=== PATIENT | male | born 1960 | race Two or more races ===

== ENCOUNTER 2017-11-01 22:20 | Emergency (ER) | payer OTHER ==
[~2017-11-01] VITALS: Ht 167.6 cm; Wt 79.8 kg
[2017-11-01] MEDS ORDERED: NKM (22:39)
[2017-11-01 22:52] VITALS: BP 136/81
[2017-11-01] MEDS ORDERED: HYDROCHLOROTHIA25 MG ORAL (23:32)
--- NOTE | 2017-11-01 23:32 | Emergency Room Report ---
History of Present Illness General Chief Complaint: Generalized Weakness Source: Patient Present Illness HPI Is a 57-year-old male with no past mental history. He presents with chief complaint of high blood pressure. He was seen by an ENT DrChris for preop for surgery on his left ear. He was therefore blood work and evaluation. He was nervous. His plus pressure was elevated. Systolic in the 200 and diastolic 100. They told to go to the hospital. He did not go anywhere until now. Here blood pressure was running systolic in the 130s to 160. Patient said he felt better. No nausea no vomiting. No fever or chills. Denies any other complaint. Allergies: Uncoded Allergies: SOYA MILK (Allergy, Unknown, 11/01/17) Patient History Past Medical History: see triage record, old chart reviewed Past Surgical History: other Pertinent Family History: none Social History: Denies: smoking Immunizations: other Reviewed Nursing Documentation: PMH: Agreed; PSxH: Agreed Nursing Documentation-PMH Past Medical History: No Stated History Review of Systems Eye: Denies: eye pain, blurred vision ENT: Denies: ear pain, nose congestion, throat swelling Respiratory: Denies: cough, shortness of breath Cardiovascular: Denies: chest pain, palpitations Gastrointestinal: Denies: abdominal pain, diarrhea, nausea, vomiting Musculoskeletal: Denies: back pain, joint pain Skin: Denies: rash Neurological: Denies: headache, numbness Endocrine: Denies: increased thirst, increased urine Hematologic/Lymphatic: Denies: easy bruising All Other Systems: negative except mentioned in HPI Physical Exam Vital Signs Date Time Temp Pulse Resp B/P (MAP) Pulse Ox O2 Delivery O2 Flow Rate FiO2 11/01/17 22:31 97.8 74 18 136/81 95 Room Air 97.9 vitals with hypertension Sp02 EP Interpretation: reviewed, normal General Appearance: well appearing, no apparent distress, alert Head: normocephalic, atraumatic Eyes: bilateral eye PERRL, bilateral eye EOMI ENT: hearing grossly normal, normal pharynx Neck: full range of motion, supple, no meningismus Respiratory: chest non-tender, lungs clear, normal breath sounds Cardiovascular #1: regular rate, rhythm, no murmur Gastrointestinal: normal bowel sounds, non tender, no mass, no organomegaly, no bruit, non-distended Musculoskeletal: back normal, gait/station normal, normal range of motion Psychiatric: mood/affect normal Skin: warm/dry Medical Decision Making Diagnostic Impression: Primary Impression: Hypertension Qualified Codes: I10 - Essential (primary) hypertension ER Course This patient presents with hypertension. He refused any blood work. We'll go head and put him on blood pressure medication. He email his doctor in [place] and will follow-up there. We'll discharge home. Last Vital Signs Date Time Temp Pulse Resp B/P (MAP) Pulse Ox O2 Delivery O2 Flow Rate FiO2 11/01/17 22:52 97.9 74 18 136/81 95 Room Air 97.9 Status: improved Disposition: HOME, SELF-CARE Condition: Stable Scripts Hydrochlorothiazide* (HYDROCHLOROTHIAZIDE*) 25 Mg Tablet 25 MG ORAL DAILY, #30 TAB Prov: AJIT DE LOS SANTOS M.D. 11/01/17 Additional Instructions: Follow-up with your doctor in a week for recheck. Return if worse. AJIT DE LOS SANTOS M.D. Nov 01, 2017 23:32
[2017-11-01 23:37] VITALS: BP 136/70
[2017-11-01 23:38] VITALS: BP 136/70
== END 2017-11-01 23:55 | disposition home or self-care (01) ==
LOC: EMR 23:52
DX: I10 Essential (primary) hypertension (principal)
CPT/HCPCS: 99283